=== PATIENT | female | born 1935 | race Caucasian/White ===

== ENCOUNTER 2017-08-25 08:59 | Emergency (ER) | payer MEDICARE ==
[~2017-08-25] VITALS: Ht 162.6 cm; Wt 77.3 kg
[~2017-08-25 08:59] MED LIST: FAMO20 PO
[2017-08-25] MEDS ORDERED: HYDROCODONE/ACETAMINOPHEN 5-325 MG TABLET PO ONE (10:30)
[2017-08-25 11:55] VITALS: BP 145/85
== END 2017-08-25 12:08 | disposition home or self-care (01) ==
LOC: EMS 08:59
DX: S09.90XA Unspecified injury of head, initial encounter (principal); M54.2 Cervicalgia; K21.9 Gastro-esophageal reflux disease without esophagitis; V43.92XA Unspecified car occupant injured in collision with other type car in traffic accident, initial encounter; Y93.89 Activity, other specified; Y92.89 Other specified places as the place of occurrence of the external cause; Y99.8 Other external cause status
CPT/HCPCS: 70450; 99284